=== PATIENT | male | born 1975 | race Caucasian/White ===

== ENCOUNTER 2018-07-14 05:36 | Day surgery (SDC) | payer OTHER, SELFPAY ==
[2018-07-14 06:20] VITALS: BP 148/94; PULSE 79; RESP 18; TEMP 36.2; O2SAT 98; BMI 35.9
[2018-07-14] MEDS: Cefazolin 2 GM in 0.9% Normal Saline 100 ML IV (07:14)
--- NOTE | 2018-07-14 07:15 | LIP_PTH ---
PATIENT: LELA MCDONALD LOC: [facility] – [place] U#:[id number] AGE/SX: 42/M ROOM: RE07/14/[address]: Dr. Adam Lemus MD : 1975 BED: DIS: 07/14/2018 SPEC #: [id number] RECD: 07/14/18 09:02 STATUS: VINNY SEEMA #: [id number] NOEMI: 07/14/18 07:[address]: Adam Lemus DEPT: SURGICAL PATHOLOGY RECD BY: Rayray Grayson ENTERED: 07/14/18 13:46 SP TYPE: LIPOMA OTHR DR: Dr. Pavel Mclean MD Tissues: Soft tissues, NOS Procedures: Surgery Specimen Level III HEADER OPERATION: Excision lipoma upper back/base of neck PRE-OP DIAGNOSIS: Lipoma upper back/base of neck TISSUE SUBMITTED: Lipoma upper back/base of neck MICROSCOPIC DIAGNOSIS Soft tissue lesion of upper back/base of neck, excision: Mature adipose tissue consistent with lipoma. AM:isma 07/15/18 MICROSCOPIC DESCRIPTION Slides are reviewed. GROSS DESCRIPTION Received in fixative is one container labeled with the patient's name and designated lipoma upper back. The specimen consists of multiple irregular fragments of yellow fatty tissue that in aggregate measure 11 x 11 x 2.2 cm. Sections reveal homogenous light franks-yellow cut surfaces without areas of cyst formation or necrosis. Cost Control Supervisor sections are submitted in two cassettes. / AM:isma 07/14/18 TC:1 CPT: 30349
[2018-07-14] MEDS: Bupivacaine Mpf 0.5% 30 ML VIAL (08:17)
--- NOTE | 2018-07-14 08:27 | PCM.OPRPT ---
Report of Operation Date of Procedure: 07/14/18 Pre-Operative Diagnosis: lipoma back - 11cm Post-Operative Diagnosis: lipoma back - 11cm Surgery/Procedure Performed:: excision of back lipoma - 11cm track repair laborer: None track repair laborer: Sofia Rock Type of Anesthesia:: General Anesthesiologist: Dilshad Limon - ASA2 Specimen's removed: lipoma Estimated Blood Loss (mL): 25 Fluids Replaced: 700 Description of Procedure: the patient's lipoma was marked in the holding area and the patient concurred that this was the planned operative site. The patient was brought back to the operative suite. Sign in was performed verifying patient, site, position, VTE prophylaxis and antibiotics. he received 2 g of Ancef andhad sequential compression devices placed. Following induction of LMA anesthesia, the patient was positioned left side down lateral decubitus position with care being taken to avoid pressure points. Ultrasound was used to evaluate the lipoma lunate. The margins. It was felt to be relatively superficial ultrasound, but in fact turned out to be deeper. On exploration. The skin was prepped and draped in usual fashion. Timeout was performed verifying patient site procedure position. Local anesthetic was injected. A transverse incision was made and dissection carried down to subcutaneous fat. Deeper to the Garth's layer was entered and a lipoma with multiple pockets between the connective tissue was encountered. These were dissected out and divided. The entire lipoma was approximately 11 x 11 cm. Once the lipoma was completely removed it was sent to pathology. The area was checked for additional palpable masses and there were no other felt to be unresectable areas. Ears irrigated with saline. There was good hemostasis. Deep fat was approximated interrupted 2-0 Vicryl sutures. Skin was closed with 3-0 nylon simple and vertical mattress sutures. The patient the procedure well. He was returned to the supine position, extubated and brought to recovery in stable condition. - Admit VTE Documentation VTE Present on Admission: No VTE Mechan Device Prophylaxis: SCD's VTE Pharm Prophylaxis ordered?: No
--- NOTE | 2018-07-14 08:29 | PCM.DC ---
You will use the following diet at home:: No restrictions Your food should be the consistency of: Regular Discharge Activity: May not drive while taking narcotic pain medications. Return to work on:: 07/18/18 Call your doctor if your incision/area has: Continuous Slow Oozing, Increased Pain/ Swelling, Increased Redness, Foul Smelling Discharge, Swelling at the incision site Call your doctor if you observe: Fever of 101 or Higher Remove Dressing in (days):: 3 Cleanse incision/area with: Keep Dressing Clean & Dry Allergies/Adverse Reactions: Allergies No Known Allergies Allergy (Verified 07/07/18 09:31) Medications to take at Discharge NK [NK] 07/07/18 Primary Care Physician: Pavel Mclean MD [Primary Care Provider] - Test Results: Test results from this visit will be discussed in further detail at your follow-up appointment, if applicable. Please Follow Up With: Adam Lemus MD When: 10 days
[2018-07-14 08:32] VITALS: BP 141/98; BP 148/95; PULSE 84; RESP 18; TEMP 36.9; O2SAT 99
[2018-07-14 08:48] VITALS: BP 140/99; BP 148/95; PULSE 78; RESP 18; TEMP 36.2; O2SAT 97
[2018-07-14 09:21] VITALS: BP 148/95
== END 2018-07-14 09:22 | disposition home or self-care (01) ==
LOC: SDC 05:37 → AC 05:39
PROVIDERS: Family Provider Family Medicine; PCP Family Medicine; Visit Provider Surgery
PROC: (CPT 21931; principal; 2018-07-14 07:00)
DX: D17.1 Benign lipomatous neoplasm of skin and subcutaneous tissue of trunk (principal); Z87.891 Personal history of nicotine dependence
CPT/HCPCS: 00300; 21931; 88304; J7120; J2405

== ENCOUNTER → 2019-03-26 | Outpatient (CLI) | payer OTHER, SELFPAY ==
[2019-03-26 11:44] VITALS: BMI 37.0
--- NOTE | 2019-03-26 12:47 | RAD_ITS ---
STUDY: X-RAY CHEST REASON FOR EXAM: Male, 43 years old. Chest pain, chest discomfort for 3-4 days TECHNIQUE: PA and lateral views of the chest. COMPARISON: None. FINDINGS: The lungs are clear and expanded. There is no demonstrated pleural abnormality. Normal size heart. Normal mediastinum and kang. Normal visualized pulmonary arteries. Normal visualized aortic arch and descending thoracic aorta. Normal visualized thoracic spine. Normal visualized ribs, clavicles, and shoulders. There is no demonstrated abnormality of the visualized soft tissue structures of the upper abdomen. RAD/Chest PA and Lateral IMPRESSION: No acute cardiopulmonary process. Electronically Signed: Tong Anderson MD at 12:03 EDT , Service support ,
== END | disposition home or self-care (01) ==
LOC: RAD 12:47
PROVIDERS: Referring Provider Internal Medicine Cardiovascular Disease; Visit Provider Internal Medicine Cardiovascular Disease
DX: R07.9 Chest pain, unspecified (principal); I10 Essential (primary) hypertension; R94.31 Abnormal electrocardiogram [ECG] [EKG]
CPT/HCPCS: 71046

== ENCOUNTER → 2019-04-21 | Outpatient (CLI) | payer OTHER, SELFPAY ==
[2019-03-26 11:44] VITALS: BMI 37.0
--- NOTE | 2019-04-21 06:45 | ECHOCS_ITS ---
Reason For Study: CHEST PAIN Procedure This was a 2D Doppler, Color Flow transthoracic echocardiogram. The study was technically difficult. Exam performed in department. Left Ventricle Normal LV size. Left ventricular systolic function is normal. The estimated ejection fraction is 60 %. Transmitral doppler flow suggestive of impaired relaxation of left ventricle. No regional wall motion abnormalities noted. Right Ventricle Normal RV size. Normal systolic function. Atria Normal left atrium. Normal right atrium. No doppler evidence for ASD. Mitral Valve There is no mitral annular calcification. Normal mitral valve. Trivial mitral valve insufficiency. Tricuspid Valve Normal tricuspid valve. Trivial tricuspid valve insufficiency. Unable to estimate RV systolic pressure/pulmonary artery pressure due to technically difficult study. Aortic Valve Trisinus/trileaflet aortic valve. Normal aortic valve. Pulmonic Valve The pulmonic valve is not well visualized. Trivial pulmonic valve insufficiency. Great Vessels Normal sized aortic root. Pericardium/Pleural No pericardial effusion. Medication Diluted definity 4ml given slow IV push to enhance endocardial definition. MMode/2D Measurements & Calculations LVIDd: 4.9 cm IVSd: 0.88 cm Ao root diam: 3.2 cm LVIDs: 3.2 cm LVPWd: 0.79 cm RVDd: 3.5 cm FS: 34.7 % LAV(MOD-bp): 24.7 ml LVAd ap4: 33.1 cm2 SV(MOD-sp4): 58.9 ml LAV(MOD-bp) Indexed: 10.5 ml/m2 EDV(MOD-sp4): 106.2 ml LAV(MOD-sp2): 33.9 ml EDV(sp4-el): 111.1 ml LAV(MOD-sp4): 18.8 ml LVAs ap4: 20.4 cm2 ESV(MOD-sp4): 47.3 ml ESV(sp4-el): 48.7 ml EF(MOD-sp4): 55.5 % EF(sp4-el): 56.2 % SV(sp4-el): 62.4 ml LA A4 area: 10.2 cm2 LA dimension(2D): 3.5 cm RA A4 area: 8.7 cm2 Time Measurements MV dec time: 0.16 sec Doppler Measurements & Calculations MV E max dale: 59.8 cm/sec Lat Peak E' Dale: 9.3 cm/sec Med Peak E' Dale: 12.2 cm/sec MV A max dale: 73.0 cm/sec E/E' lat: 6.5 E/E' med: 4.9 MV E/A: 0.82 Ao V2 max: 112.2 cm/sec LV V1 max: 92.8 cm/sec PA V2 max: 105.9 cm/sec Ao max P.0 mmHg LV V1 max P.4 mmHg Interpretation Summary The study was technically difficult. Left ventricular systolic function is normal. The estimated ejection fraction is 60 %. Trivial mitral valve insufficiency. Trivial tricuspid valve insufficiency. Trivial pulmonic valve insufficiency. Unable to estimate RV systolic pressure/pulmonary artery pressure due to technically difficult study. Transmitral doppler flow suggestive of impaired relaxation of left ventricle Ordering Physician: Bassem Quezada Referring Physician: Bassem Quezada Performed By: Pebbles Swain RDCS
[2019-04-21 08:00] LABS: AST(SGOT) 29 U/L (15-37); Alanine Aminotransfer ALT/SGPT 36 U/L (16-61); Albumin, Serum 3.7 g/dL (3.2-5.0); Alkaline Phosphatase 94 U/L (45-117); Anion Gap 9 (5-15); BUN 20 mg/dL (7-18); BUN/Creat Ratio 19.8 RATIO (10-20); Bilirubin, Direct 0.12 mg/dL (0.00-0.30); Calcium,Total 8.6 mg/dL (8.5-10.1); Chloride 102 mmol/L (98-107); Cholesterol 197 mg/dL (200); Creatinine, Serum 1.01 mg/dL (0.70-1.30); EST Glomerular Filtration Rate 85 mL/min (>60); Est Glom Filt Rate - Afr Amer 103 mL/min (>60); Globulin 3.7 g/dL (2.2-4.2); Glucose 107 mg/dL (74-106); High Density Lipoprotein 54 mg/dL; Potassium 3.7 mmol/L (3.5-5.1); Protein, Total 7.4 g/dL (6.4-8.2); Sodium Level 142 mmol/L (136-145); Triglycerides 173 mg/dL; Very Low Density Lipoprotein 35 mg/dL (5-40)
--- NOTE | 2019-04-21 14:08 | STRESSREP ---
Stress Test Report Date: 04-21-19 Procedure: Exercise tolerance test/imaging study Indications: Chest pain Consent: Per the patient Procedure: The patient exercised on a Rober protocol for 9 minutes and 45 seconds completing Stage II and 2 minutes and 45 seconds of Stage III achieving a peak heart rate of 181 bpm (102 % predicted maximal heart rate) with a peak blood pressure 180/100 mmHg and a peak MET capacity of 11 METs. The baseline ECG demonstrated normal sinus rhythm; nonspecific T wave abnormality. The peak exercise ECG demonstrated continued nonspecific T wave abnormality with no obvious changes compared with baseline. There were no cardiac dysrhythmias pretest, during exercise, or recovery. The functional capacity was considered good. There was no complaint of chest discomfort during exercise or recovery. The examination was discontinued secondary to leg discomfort. Impression: 1. Technically adequate (percent predicted maximal heart rate greater than 85%) exercise tolerance test 2. Peak exercise ECG with continued nonspecific T wave abnormality with no obvious changes compared with baseline 3. There were no cardiac dysrhythmias pretest, during exercise, or recovery 4. Nuclear images pending Myocardial perfusion imaging study: Technique: The patient was injected with 14.9 mCi of technetium 99m Cardiolite and subsequently rest SPECT Cardiolite nuclear imaging was obtained in the horizontal long, vertical long, and short axis views. The patient exercised on a Rober protocol for 9 minutes and 45 seconds completing Stage II and 2 minutes and 45 seconds of Stage III achieving a peak heart rate of 181 bpm (102 % predicted maximal heart rate) with a peak blood pressure 180/100 mmHg and a peak MET capacity of 11 METs. The patient was injected with 44.8 mCi of technetium 99m Cardiolite and subsequently stress SPECT Cardiolite nuclear imaging was obtained in the horizontal long, vertical long, and short axis views. A gated Cardiolite study at peak stress was obtained. Interpretation: Rest and stress SPECT Cardiolite nuclear imaging status post realignment, normalization, and attenuation correction, demonstrates appearance of a small area of subtle diminished tracer uptake near the apical segments without significant change between rest and stress. There is end systolic thickening and brightening. The gated Cardiolite study demonstrates myocardial thickening and inward wall motion. The reported LVEF is 64 %. Impression: 1. Rest and stress SPECT Cardiolite nuclear imaging demonstrate myocardial perfusion changes appearing compatible defects of physiologic apical thinning with no myocardial perfusion changes considered diagnostic for associated stress-induced myocardial ischemia or previous myocardial injury/infarction. 2. The gated Cardiolite study reports an LVEF of 64 o0%. This note was generated with Fengguoation software. It may contain incorrect words, spelling, and punctuation that were not noted in checking the note before signing.
--- NOTE | 2019-04-21 14:12 | STRESSREP_ITS ---
Stress Test Report Date: 04-21-19 Procedure: Exercise tolerance test/imaging study Indications: Chest pain Consent: Per the patient Procedure: The patient exercised on a Rober protocol for 9 minutes and 45 seconds completing Stage II and 2 minutes and 45 seconds of Stage III achieving a peak heart rate of 181 bpm (102 % predicted maximal heart rate) with a peak blood pressure 180/100 mmHg and a peak MET capacity of 11 METs. The baseline ECG demonstrated normal sinus rhythm; nonspecific T wave abnormality. The peak exercise ECG demonstrated continued nonspecific T wave abnormality with no obvious changes compared with baseline. There were no cardiac dysrhythmias pretest, during exercise, or recovery. The functional capacity was considered good. There was no complaint of chest discomfort during exercise or recovery. The examination was discontinued secondary to leg discomfort. Impression: 1. Technically adequate (percent predicted maximal heart rate greater than 85%) exercise tolerance test 2. Peak exercise ECG with continued nonspecific T wave abnormality with no obvious changes compared with baseline 3. There were no cardiac dysrhythmias pretest, during exercise, or recovery 4. Nuclear images pending Myocardial perfusion imaging study: Technique: The patient was injected with 14.9 mCi of technetium 99m Cardiolite and s ubsequently rest SPECT Cardiolite nuclear imaging was obtained in the horizontal long, vertical long, and short axis views. The patient exercised on a Rober protocol for 9 minutes and 45 seconds completing Stage II and 2 minutes and 45 seconds of Stage III achieving a peak heart rate of 181 bpm (102 % predicted maximal heart rate) with a peak blood pressure 180/100 mmHg and a peak MET capacity of 11 METs. The patient was injected with 44.8 mCi of technetium 99m Cardiolite and subsequently stress SPECT Cardiolite nuclear imaging was obtained in the horizontal long, vertical long, and short axis views. A gated Cardiolite study at peak stress was obtained. Interpretation: Rest and stress SPECT Cardiolite nuclear imaging status post realignment, normalization, and attenuation correction, demonstrates appearance of a small area of subtle diminished tracer uptake near the apical segments without significant change between rest and stress. There is end systolic thickening and brightening. The gated Cardiolite study demonstrates myocardial thickening and inward wall motion. The reported LVEF is 64 %. Impression: 1. Rest and stress SPECT Cardiolite nuclear imaging demonstrate myocardial perfusion changes appearing compatible defects of physiologic apical thinning with no myocardial perfusion changes considered diagnostic for associated stress-induced myocardial ischemia or previous myocardial injury/infarction. 2. The gated Cardiolite study reports an LVEF of 64 o0%. This note was generated with PowerCardation software. It may contain incorrect words, spelling, and punctuation that were not noted in checking the note before signing.
== END | disposition home or self-care (01) ==
PROVIDERS: Referring Provider Internal Medicine Cardiovascular Disease; Visit Provider Internal Medicine Cardiovascular Disease
DX: R07.9 Chest pain, unspecified (principal); I10 Essential (primary) hypertension; R94.31 Abnormal electrocardiogram [ECG] [EKG]
CPT/HCPCS: 36415; 78452; 80048; 80061; 80076; 93017; 93306; A9500; Q9957; A4216; C8929

== ENCOUNTER 2025-10-12 14:46 | Emergency (ER) | payer OTHER, SELFPAY ==
[2025-10-12 14:46] VITALS: BP 158/111; PULSE 115; RESP 16; TEMP 36.6; O2SAT 97; BMI 40.6
[2025-10-12 14:56] VITALS: BP 148/88; PULSE 99; RESP 21; O2SAT 96
--- NOTE | 2025-10-12 15:25 | EKG12_ITS ---
Test Reason : Blood Pressure : */* mmHG Vent. Rate : 87 BPM Atrial Rate : 87 BPM P-R Int : 164 ms QRS Dur : 70 ms QT Int : 350 ms P-R-T Axes : 4 3 -12 degrees QTcB Int : 421 ms Normal sinus rhythm Inferior infarct , age undetermined Abnormal ECG Confirmed by SAKINA SAMANO, MELINDA ([id number]), online editor LUH KIRKPATRICK ([id number]) on 10/13/2025 9:22:36 AM Referred By: Confirmed By: MELINDA PRESLEY MD
[2025-10-12 15:43] VITALS: BP 133/91; BP 141/85; BP 146/89; PULSE 104; PULSE 90
--- NOTE | 2025-10-12 15:44 | EX.ED.DYSGE1 ---
HPI History of Present Illness Chief Complaint: Weakness Narrative Narrative: Patient is a 50-year-old male presenting to the emergency department for generalized weakness. Patient states that he was just started on amlodipine as well as allopurinol about 1.5 weeks ago by his PCP. He states that after he started taking this he felt lightheaded intermittently and generally weak. He denies fever, chills, cough, congestion, sore throat. Denies chest pain, shortness of breath, abdominal pain, nausea, vomiting, diarrhea. Denies any dysuria or hematuria. Denies any headache or visual changes. Denies any focal numbness or weakness. Denies any other medications that he was recently started on. States that he checked his bp when he was feeling this way and his bp was aroiund 110/60 which is much lower than his normal he reports. [facility] Medical History (Updated 10/12/25 @ 17:[address] Aurora Jones MD) Essential hypertension Chest pain Medical History unable to obtain Home Medications ?Medication ?Instructions ?Recorded ?Last Taken ?Type amlodipine 2.5 mg tablet 2.5 mg PO DAILY #30 tabs 09/02/19 Unknown Rx doxycycline hyclate 100 mg tablet 100 mg PO Q12H 5 days #10 tabs 10/12/25 Unknown Rx Allergy/AdvReac Type Severity Reaction Status Date / Time No Known Allergies Allergy Verified 10/12/25 14:48 Family History Mother CAD (coronary artery disease) History of coronary artery bypass surgery Father CAD (coronary artery disease) Family History unable to obtain Surgical History History of shoulder surgery Surgical History unable to obtain Social History Smoking Status: Never smoker alcohol intake: current details: occasional substance use type: does not use caffeine: Yes Type: coffee Number of servings: 3 ROS ROS ED ROS Narrative see HPI EXAM Physical Exam Narrative Exam Narrative: Vital signs: Reviewed General: Alert and oriented x 3. No acute distress HEENT: Head is normocephalic and atraumatic, sinuses nontender, pupils equal round and reactive. Nares are patent. Oropharynx and throat exams normal. Neck: Supple without lymphadenopathy nontender Cardiovascular: Regular rate and rhythm, no murmurs. No rubs or gallops. Normal S1 and S2 Respiratory: Clear to auscultation bilaterally. No wheezes, rales, rhonchi Abdominal: Soft and nontender. Normal bowel sounds. No guarding or rebound. Nonsurgical abdomen Extremities: No tenderness. No bruising. Normal range of motion. Normal sensation. Skin: No rash or redness. Neurological: Cranial nerves II through XII are grossly intact. Normal strength and sensation. Normal cerebellar function The rest of the physical exam is unremarkable Const Vital Signs: 10/12/25 14:46 10/12/25 14:56 10/12/25 14:56 Temperature 97.8 F Temperature Source Oral Pulse Rate 115 H 99 Pulse Rate [Sitting (for 1 minute prior to obtaining)] Pulse Rate [Standing (for 1 minute prior to obtaining)] Respiratory Rate 16 21 H Respiratory Effort Normal Respiratory Pattern Normal Blood Pressure 158/111 H 148/88 H Blood Pressure [Lying] Blood Pressure [Sitting (for 1 minute prior to obtaining)] Blood Pressure [Standing (for 1 minute prior to obtaining)] Blood Pressure Mean 126 108 Blood Pressure Mean [Lying] Blood Pressure Mean [Sitting (for 1 minute prior to obtaining)] Blood Pressure Mean [Standing (for 1 minute prior to obtaining)] Pulse Ox 97 96 Oxygen Delivery Method Room Air Room Air 10/12/25 15:43 10/12/25 16:59 10/12/25 17:47 Temperature 97.8 F Temperature Source Pulse Rate 88 84 Pulse Rate [Sitting (for 1 minute prior to obtaining)] 90 Pulse Rate [Standing (for 1 minute prior to obtaining)] 104 H Respiratory Rate 17 18 Respiratory Effort Respiratory Pattern Blood Pressure 141/91 H 142/64 H Blood Pressure [Lying] 141/85 H Blood Pressure [Sitting (for 1 minute prior to obtaining)] 133/91 H Blood Pressure [Standing (for 1 minute prior to obtaining)] 146/89 H Blood Pressure Mean 107 90 Blood Pressure Mean [Lying] 103 Blood Pressure Mean [Sitting (for 1 minute prior to obtaining)] 105 Blood Pressure Mean [Standing (for 1 minute prior to obtaining)] 108 Pulse Ox 94 99 Oxygen Delivery Method Room Air NIHSS NIHSS Initial: 1a Level of Consciousness: 0 1b LOC Questions (Score 2 if aphasic/stupor): 0 1c LOC Commands (Only score 1st attempt): 0 2 Best Gaze (If aphasic, use reflexive mvmts.): 0 3 Visual: 0 4 Facial Palsy: 0 5 Motor Arm Right (UN = amputation/fusion): 0 5 Motor Arm Left: 0 6 Motor Leg Right: 0 6 Motor Leg Left: 0 7 Limb ataxia (Only + if out of proportion): 0 8 Sensory (Aphasia/stupor=0 or 1, coma=2): 0 9 Best Language: 0 10 Dysarthria (mute, coma=2, intubated=UN): 0 11 Extinction and Inattention (only scored if +): 0 Total Score: 0 MDM MDM MDM Narrative Medical decision making narrative: Patient is a 50-year-old male presenting to the emergency department for feeling generally weak and lightheaded. Patient was seen and examined. Vitals are stable. Patient resting in bed comfortably in no acute distress. Differential includes but is not limited to: Electrolyte abnormality, anemia, UTI, ACS, pneumonia, hypotension, viral illness. Weakness is generalized not focal I do not think is a stroke in nature. EKG, chest x-ray, basic lab work and urinalysis were obtained. CBC with no leukocytosis and a normal hemoglobin. BMP with no significant abnormalities. Urinalysis with no evidence of urinary tract infection. Chest x-ray reviewed by myself, possible mild right infrahilar density seen. Radiology read in agreement. EKG shows normal sinus rhythm, no ischemic changes. No dysrhythmia. Appears similar to EKG in the past in 2019. Similar appearing EKG in the past and no chest pain or shortness of breath to think that this is ACS in nature. I do not think the patient needs troponins. I discussed the findings with the patient. Given his reports of generalized weakness and the x-ray findings I did offer antibiotics for the patient for possible atypical pneumonia. Will prescribe doxycycline for home for 5 days. I do think the patient's symptoms are likely due to his recent addition of amlodipine. This was discussed with him. Patient discharged from the Emergency Department. I do not feel that the patient's evaluation reveals any acute reason for admission at this time. I instructed them to either follow-up with their primary care physician or promptly return to the Emergency Department for reevaluation should symptoms worsen or new symptoms develop. I explained what symptoms would indicate the need to return to the emergency department. Shared decision making was used. The patient voiced understanding of the treatment plan and is agreeable with it. Clinical impression Generalized weakness Pneumonia History & Record Review Discussion w/independent historian: Patient Lab Data Attestation: I reviewed the patient's lab results. Labs: Laboratory Results - last 24 hr 10/12/25 10/12/25 15:32 15:43 WBC 9.3 RBC 5.65 Hgb 16.2 Hct 46.9 MCV 83.0 MCH 28.7 MCHC 34.5 RDW Std Deviation 38.9 RDW Coeff of Femi 12.9 Plt Count 315 MPV 9.5 Immature Gran % (Auto) 0.300 Neut % (Auto) 79.6 H Lymph % (Auto) 12.4 L Pender % (Auto) 5.9 Eos % (Auto) 1.2 Baso % (Auto) 0.6 Absolute Neuts (auto) 7.4 Absolute Lymphs (auto) 1.15 Nucleated RBC % 0 Sodium 137 Potassium 3.7 Chloride 102 Carbon Dioxide 24.4 Anion Gap 11 BUN 20 H Creatinine 1.10 Estim Creat Clear Calc 110.15 Est GFR (MDRD) Non-Af 81 BUN/Creatinine Ratio 18.5 Glucose 121 H Calcium 8.8 Urine Color Straw Urine Clarity Clear Urine pH 6.0 Ur Specific [place] 1.015 Urine Protein 30 H Urine Glucose (UA) Normal Urine Ketones Negative Urine Occult Blood 10 H Urine Nitrite Negative Urine Bilirubin Negative Urine Urobilinogen Normal Ur Leukocyte Esterase Negative Urine RBC 0-5 SEEN Urine WBC 0-5 SEEN Ur Squamous Epith Cells 0-5 SEEN Urine Bacteria 0 SEEN Urine Mucus 0 SEEN Radiography Diagnostic Testing: Clinical Impression(s) from Imaging Studies Chest X-Ray 10/12/25 15:49 IMPRESSION: As above. Reading Location: [facility] Discharge Plan Triage Chief Complaint: Weakness ED Provider: Aurora Jones Dx/Rx/DC Orders Clinical Impression: Generalized weakness, Pneumonia Instructions: ED Pneumonia (Adult), ED Weakness Uncertain Cause Prescriptions: New doxycycline hyclate 100 mg tablet 100 mg PO Q12H 5 Days Qty: 10 0RF No Action amlodipine 2.5 mg tablet 2.5 mg PO DAILY Qty: 30 12RF Stand Alone Forms: ED Work / School Excuse Primary Care Provider: Lila Vera NP Referrals: Lila Vera NP, TRANSPORT COORDINATOR-C [Primary Care Provider, [facility]] - As soon as possible Activity Restrictions/Additional Instructions: Take the antibiotic twice a day for 5 days. Continue taking your blood pressure medication. Your evaluation in the Emergency Department did not reveal any acute reason for admission. However, I want to emphasize that you may be early in the course of a disease process or illness even if it is not present. For this reason you should follow-up within 24 hours for reevaluation with either your primary care physician or if necessary back here in the Emergency Department. You should return to the Emergency Department immediately if your symptoms worsen or new symptoms develop. Print Language: Yakut Disposition Disposition: Home, Self Care Discharge Date/Time: 10/12/25 17:56
[2025-10-12 15:45] LABS: Hematocrit 46.9 % (40-54); Hemoglobin 16.2 g/dL (13.0-16.5); Immature Granulocytes Count 0.030 X10^3/uL (0.0-0.0); Mean Corp Hgb Conc 34.5 g/dL (32-36); Mean Corpuscular Volume 83.0 fL (80-94); Mean Platelet Vol. 9.5 fl (6.2-12.0); NRBC Flagged by Analyzer 0 % (0-5); Platelet Count 315 K/mm3 (150-450); RBC Distribution Width CV 12.9 % (11.6-14.6); RBC Distribution Width SD 38.9 fl (35.1-43.9); Red Blood Count 5.65 M/mm3 (4.6-6.2); White Blood Count 9.3 K/mm3 (4.4-11.0)
[2025-10-12 15:47] LABS: Mucous, Urine 0 SEEN /hpf (<or=2+)
--- NOTE | 2025-10-12 15:49 | RAD_ITS ---
PROCEDURE: CHEST PA AND LATERAL 10/12/2025 REASON FOR EXAM: WEAK TECHNIQUE: Procedure Code: RADCXR Modality: DX Procedure: CHEST PA AND LATERAL COMPARISON: 03/26/2019. FINDINGS: Patchy opacity in the right infrahilar region is concerning for developing infiltrates. Otherwise the lungs are clear. The cardiac silhouette appears normal in size and contour. No acute osseous abnormality. Stable degenerative changes within the thoracic spine. RAD/Chest PA and Lateral IMPRESSION: As above. Reading Location: [id number]
[2025-10-12 16:14] LABS: Anion Gap 11 (5-15); BUN 20 mg/dL (4-19); BUN/Creat Ratio 18.5 RATIO (10-20); Calcium,Total 8.8 mg/dL (7.6-11.0); Carbon Dioxide 24.4 mmol/L (21.0-32.0); Chloride 102 mmol/L (98-108); Estimated Creatinine Clearance 110.15 ml/min (50-250); Glucose 121 mg/dL (70-99); Potassium 3.7 mmol/L (3.3-5.1)
[2025-10-12 16:59] VITALS: BP 141/91; PULSE 88; RESP 17; O2SAT 94
[2025-10-12 17:01] LABS: Color, Urine Straw (Yellow); Glucose, Dipstick Normal (Normal); Ketone-Dipstick Negative (Negative); Leukocyte Esterase-Dipstick Negative /ul (Negative); Nitrite-Dipstick Negative (Negative); Occult Blood-Urine 10 /ul (Negative); Protein-Dipstick 30 mg/dl (Negative); Specific Gravity, Urine 1.015 (1.002-1.030); Urine Bilirubin Dipstick Negative (Negative)
[2025-10-12 17:28] LABS: Red Blood Cells-Urine 0-5 SEEN /hpf (0-5); Squamous Epithelial Cells - UA 0-5 SEEN /hpf (0-5)
[2025-10-12 17:47] VITALS: BP 142/64; PULSE 84; RESP 18; TEMP 36.6; O2SAT 99
--- OUTSIDE RECORDS SUMMARY | 2025-10-12 19:16 | XMS RPT_ITS | CCD ---
Author Organization [facility] Care Team Providers Care Interviewing Clerk Name Role Phone UNGERER, AMINA NIGHT TIME BABYSITTER Attending Unavailable UNGERER, AMINA NIGHT TIME BABYSITTER Primary Care Unavailable UNGERER, AMINA NIGHT TIME BABYSITTER Admitting Unavailable Juan Manuel Leon Attending Unavailable Care Physician, No Primary Referring Unava ilable Care Physician, No Primary Primary Care Unava ilable UNGERER, AMINA NIGHT TIME BABYSITTER Primary Care Unavailable UNGERER, AMINA NIGHT TIME BABYSITTER Admitting Unavailable UNGERER, AMINA NIGHT TIME BABYSITTER Attending Unavailable UNGERER, AMINA NIGHT TIME BABYSITTER Consulting Unavailable PROVIDER, UNKNOWN Consulting Unavailable UNGERER, AMINA NIGHT TIME BABYSITTER Admitting Unavailable UNGERER, AMINA NIGHT TIME BABYSITTER Attending Unavailable UNGERER, AMINA NIGHT TIME BABYSITTER Primary Care Unavailable UNGERER, AMINA NIGHT TIME BABYSITTER Consulting Unavailable HOA, RONA Admitting Unavailable HOA, RONA Primary Care Unavailable HOA, RONA Attending Unavailable PROVIDER, UNKNOWN Consulting Unavailable HOA, RONA Admitting Unavailable HOA, RONA Primary Care Unavailable HOA, RONA Attending Unavailable UNGERER, AMINA NIGHT TIME BABYSITTER Consulting Unavailable PROVIDER, UNKNOWN Consulting Unavailable Problems Active Problems Problem Classification Problem Date Documented Da te Episodic/Chronic Essential hypertension (3 sources) Essential (primary) hypertension; Translations: [Essential (primary) hypertension] Onset: 12-13-2022 Chronic 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) Gout, unspecified; Translations: [Gout, unspecified] Onset: 09-28-2025 Chronic Other non-traumatic joint disorders (1 source) Effusion, right elbow; Translations: [Effusion, right elbow] Onset: 12-19-2023 Episodic Unclassified (1 source) Obesity, class 3; Translations: [Obesity, class 3] Onset: 02-25-2025 Past or Other Problems Problem Classification Problem Date Documented Da te Episodic/Chronic Other screening for suspected conditions (not mental disorders or infectious disease) (3 sources) Encounter for screening for lipoid disorders; Translations: [Encounter for screening for malignant neoplasm of prostate] Onset: 12-13-2022 Episodic Results Test Name Value Interpretation Reference Range Facil ity URIC ACIDon 09-28-2025 Urate [Mass/Vol] 7.5 mg/dL High 3.5 - 7.2 [facility] Comment on above: Performed By: #### 2 [id number] #### [facility],[address] [place] [address] CBC + DIFFon 12-19-2023 Baso # 0.10 x10EE3/UL Normal 0.00 - 0.10 [facility] Comment on above: Performed By: #### 2 04300 #### [place] [address] Basophils/100 WBC (Bld) 0.6 % Normal 0.0 - 2.0 [facility] Comment on above: Performed By: #### 2 93567 #### [facility],[address] [place] [address] CBC + DIFF Normal [facility] Comment on above: Result Comment: CBC- COMPLETE BLOOD COUNT Performed By: #### 2 27472 #### [place] [address] EO # 0.10 x10EE3/UL Normal 0.00 - 0.50 [facility] Comment on above: Performed By: #### 2 46902 #### [facility],[address] [place] [address] Eosinophils/100 WBC (Bld) 1.0 % Normal 0.0 - 7.0 [facility] Comment on above: Performed By: #### 2 98192 #### [place] [address] Erythrocyte distribution width (RBC) [Ratio] 14.4 % Normal 12.0 - 15.6 [facility] Comment on above: Performed By: #### 2 58962 #### [facility],[address] [place] [address] Hematocrit (Bld) [Volume fraction] 46.2 % Normal 40.0 - 52.0 [facility] Comment on above: Performed By: #### 2 75455 #### [facility],[address] [place], [place] [id number] Hemoglobin (Bld) [Mass/Vol] 15.4 g/dL Normal 13.0 - 17.5 [facility] Comment on above: Performed By: #### 2 86235 #### [facility],[address] [place] [address] Lymph # 2.30 x10EE3/UL Normal 0.80 - 2.80 [facility] Comment on above: Performed By: #### 2 49834 #### [facility],[address] [place] [address] Lymphocytes/100 WBC (Bld) 22.0 % Normal 20.0 - 45.0 [facility] Comment on above: Performed By: #### 2 44656 #### [facility],[address] [place] [address] 83161 MANUAL DIFF N/A Normal [facility] Comment on above: Performed By: #### 2 82204 #### [facility],[address] [place], [place] [id number] MCH (RBC) [Entitic mass] 28 pg Normal 27 - 33 [facility] Comment on above: Performed By: #### 2 77966 #### [facility],[address] [place] [address] 91078 MCHC 33 X10 3 Normal 32 - 36 [facility] Comment on above: Performed By: #### 2 78104 #### [facility],[address] [place] [address] 33104 MCV (RBC) [Entitic vol] 85 fL Normal 81 - 98 [facility] Comment on above: Performed By: #### 2 80308 #### [facility],[address] [place] [address] 98139 Coles # 0.70 x10EE3/UL Normal 0.20 - 1.00 [facility] Comment on above: Performed By: #### 2 48852 #### [facility],[address] [place] [address] 67838 MONOS % 6.5 % Normal 0.0 - 10.0 [facility] Comment on above: Performed By: #### 2 05837 #### [facility],[address] [place] [address] 85144 Morphology Florentino (Bld) [Interp] N/A Normal [facility] Comment on above: Result Comment: {CD] Performed By: #### 2 20316 #### [facility],[address] [place] [address] 51974 Neut # 7.20 x10EE3/UL High 1.50 - 7.10 [facility] Comment on above: Performed By: #### 2 44478 #### [facility],[address] [place] [address] 05540 Neutrophils/100 WBC (Bld) 69.9 % Normal 46.0 - 76.0 [facility] Comment on above: Performed By: #### 2 50710 #### [facility],[address] [place] [address] 77922 PLATELET 409 x10EE3/UL Normal 150 - 450 [facility] Comment on above: Performed By: #### 2 19237 #### [facility],[address] [place] [address] 97662 Platelet mean volume (Bld) [Entitic vol] 7.6 fL Normal 6.4 - 10.5 [facility] Comment on above: Result Comment: AUTO MATED DIFFERENTIAL Performed By: #### 2 94106 #### [facility],[address] [place] [address] 90333 RBC 5.44 x 10EE6/UL Normal 4.50 - 6.00 [facility] Comment on above: Performed By: #### 2 41777 #### [facility],[address] [place] [address] 55637 WBC 10.3 x 10EE3/UL Normal 4.5 - 10.8 [facility] Comment on above: Performed By: #### 2 04073 #### [facility],[address] [place] [address] 17040 CMP with eGFRon 12-19-2023 AGE 48 years Normal [facility] Comment on above: Performed By: #### 2 68936 #### [facility],[address] [place] [address] 98836 Albumin [Mass/Vol] 3.5 g/dL Normal 3.4 - 5.0 [facility] Comment on above: Performed By: #### 2 88508 #### [facility],[address] [place] [address] 58873 Albumin/Globulin [Mass ratio] 0.9 {ratio} Normal 0.9 - 1.6 [facility] Comment on above: Performed By: #### 2 82581 #### [facility],[address] [place] [address] 04967 ALK PHOS 99 U/L Normal 46 - 116 [facility] Comment on above: Performed By: #### 2 61331 #### [facility],[address] [place] [address] 40576 ALT [Catalytic activity/Vol] 29 U/L Normal 16 - 63 [facility] Comment on above: Performed By: #### 2 69772 #### [facility],[address] [place] [address] 13530 Anion gap [Moles/Vol] 15 mmol/L Normal 10 - 20 [facility] Comment on above: Performed By: #### 2 62213 #### [facility],[address] [place] [address] 83279 AST [Catalytic activity/Vol] 21 U/L Normal 15 - 37 [facility] Comment on above: Performed By: #### 2 02183 #### [facility],[address] [place] [address] 50630 B/C RATIO 31 ratio High 0 - 30 [facility] Comment on above: Performed By: #### 2 01015 #### [facility],[address] [place] [address] 08389 Bilirubin [Mass/Vol] 0.7 mg/dL Normal 0.2 - 1.0 [facility] Comment on above: Performed By: #### 2 63294 #### [facility],[address] [place] [address] 62610 Calcium [Mass/Vol] 8.8 mg/dL Normal 8.5 - 10.1 [facility] Comment on above: Performed By: #### 2 34293 #### [facility],[address] [place] [address] 11036 Chloride [Moles/Vol] 103 mmol/L Normal 98 - 107 [facility] Comment on above: Performed By: #### 2 55099 #### [facility],[address] [place] [address] 83582 CMP with eGFR Normal [facility] Comment on above: Result Comment: COMP REHENSIVE METABOLIC PANEL Performed By: #### 2 28007 #### [facility],[address] [place] [address] 96540 CO2 [Moles/Vol] 27.0 mmol/L Normal 21.0 - 32.0 [facility] Comment on above: Performed By: #### 2 58533 #### [facility],[address] [place] [address] 26386 Creatinine [Mass/Vol] 1.00 mg/dL Normal 0.70 - 1.30 [facility] Comment on above: Performed By: #### 2 87133 #### [facility],[address] [place] [address] 29700 GFR/1.73 sq M.predicted among non-blacks MDRD (S/P/Bld) [Vol rate/Area] mL/min/{1.73_m2} Normal 60 - 999 [facility] Comment on above: Performed By: #### 2 54365 #### [facility],[address] [place] [address] 96883 Result Comment: ACCO RDING TO THE NATIONAL KIDNEY DISEASE EDUCATION PROGRAM(NKDE), A NORMAL eGFR IS A VALUE GREATER THAN OR EQUAL TO 60 ML/MIN/1.73 SQ METERS. CHRONIC KIDNEY DISEASE: <60mL/MIN/1.73 SQ METERS KIDNEY FAILURE: <15mL/MIN/1.73 SQ METERS THIS TEST SHOULD ONLY BE USED FOR PATIENTS 18 YEARS OF AGE AND OLDER. Globulin (S) [Mass/Vol] 4.0 g/dL High 1.5 - 3.8 [facility] Comment on above: Performed By: #### 2 87107 #### [facility],[address] [place] [address] 62067 Glucose [Mass/Vol] 89 mg/dL Normal 74 - 106 [facility] Comment on above: Performed By: #### 2 15165 #### [facility],[address] [place] [address] 76018 Potassium [Moles/Vol] 3.5 mmol/L Normal 3.5 - 5.1 [facility] Comment on above: Performed By: #### 2 49676 #### [facility],[address] [place] [address] 32016 Protein [Mass/Vol] 7.5 g/dL Normal 6.4 - 8.2 [facility] Comment on above: Performed By: #### 2 04899 #### [facility],[address] [place] [address] 60669 Sodium [Moles/Vol] 141 mmol/L Normal 136 - 145 [facility] Comment on above: Performed By: #### 2 18720 #### [facility],[address] [place] [address] 60565 Urea nitrogen [Mass/Vol] 31 mg/dL High 7 - 18 [facility] Comment on above: Performed By: #### 2 66147 #### [facility],[address] [place] [address] 17790 LIPID PROFILEon 12-19-2023 Cholesterol [Mass/Vol] 158 mg/dL Normal 0 - 240 [facility] Comment on above: Performed By: #### 2 09519 #### [facility],[address] [place] [address] 43020 Cholesterol in HDL [Mass/Vol] 63 mg/dL High 40 - 60 [facility] Comment on above: Performed By: #### 2 23020 #### [facility],[address] [place] [address] 82806 Cholesterol in LDL [Mass/Vol] 78 mg/dL Normal 0 - 129 [facility] Comment on above: Performed By: #### 2 17155 #### [facility],[address] [place] [address] 26365 Cholesterol.total/C holesterol in HDL [Mass ratio] 2.5 {ratio} Normal 0.0 - 5.0 [facility] Comment on above: Performed By: #### 2 03033 #### [facility],[address] [place] [address] 01565 Lipid 1996 panel Normal [facility] Comment on above: Result Comment: LIPI D PROFILE Performed By: #### 2 23281 #### [facility],[address] [place] [address] 05943 Triglyceride [Mass/Vol] 84 mg/dL Normal 0 - 150 [facility] Comment on above: Performed By: #### 2 17556 #### [facility],[address] [place] [address] 45099 URIC ACIDon 12-19-2023 Urate [Mass/Vol] 8.2 mg/dL High 3.5 - 7.2 [facility] Comment on above: Performed By: #### 2 73427 #### [facility],[address] [place] [address] 70959 CBC + DIFFon 12-13-2022 Baso # 0.10 x10EE3/UL Normal 0.00 - 0.10 [facility] Comment on above: Performed By: #### 2 85891 #### [facility],[address] [place] [address] 71356 Basophils/100 WBC (Bld) 0.8 % Normal 0.0 - 2.0 [facility] Comment on above: Performed By: #### 2 99890 #### [facility],[address] [place] [address] CBC + DIFF Normal [facility] Comment on above: Result Comment: CBC- COMPLETE BLOOD COUNT Performed By: #### 2 75225 #### [facility],[address] [place] [address] 31400 EO # 0.20 x10EE3/UL Normal 0.00 - 0.50 [facility] Comment on above: Performed By: #### 2 83262 #### [facility],[address] [place] [address] 79135 Eosinophils/100 WBC (Bld) 2.4 % Normal 0.0 - 7.0 [facility] Comment on above: Performed By: #### 2 13705 #### [facility],[address] [place] [address] 25138 Erythrocyte distribution width (RBC) [Ratio] 13.6 % Normal 12.0 - 15.6 [facility] Comment on above: Performed By: #### 2 45218 #### [facility],[address] [place] [address] 35898 Hematocrit (Bld) [Volume fraction] 50.8 % Normal 40.0 - 52.0 [facility] Comment on above: Performed By: #### 2 67791 #### [facility],[address] [place] [address] 93431 Hemoglobin (Bld) [Mass/Vol] 16.8 g/dL Normal 13.0 - 17.5 [facility] Comment on above: Performed By: #### 2 85606 #### [facility],[address] [place] [address] Lymph # 1.60 x10EE3/UL Normal 0.80 - 2.80 [facility] Comment on above: Performed By: #### 2 35836 #### [facility],[address] [place] [address] Lymphocytes/100 WBC (Bld) 23.5 % Normal 20.0 - 45.0 [facility] Comment on above: Performed By: #### 2 27369 #### [facility],[address] [place] [address] MANUAL DIFF N/A Normal [facility] Comment on above: Performed By: #### 2 06323 #### [facility],[address] [place] [address] MCH (RBC) [Entitic mass] 28 pg Normal 27 - 33 [facility] Comment on above: Performed By: #### 2 10813 #### [facility],[address] [place] [address] MCHC 33 X10 3 Normal 32 - 36 [facility] Comment on above: Performed By: #### 2 37964 #### [facility],[address] [place] [address] MCV (RBC) [Entitic vol] 85 fL Normal 81 - 98 [facility] Comment on above: Performed By: #### 2 53743 #### [facility],[address] [place] [address] Coles # 0.50 x10EE3/UL Normal 0.20 - 1.00 [facility] Comment on above: Performed By: #### 2 17869 #### [facility],[address] [place] [address] MONOS % 7.4 % Normal 0.0 - 10.0 [facility] Comment on above: Performed By: #### 2 47798 #### [facility],[address] [place] [address] 13027 Morphology Florentino (Bld) [Interp] N/A Normal [facility] Comment on above: Result Comment: {CD] Performed By: #### 2 62861 #### [facility],[address] [place] [address] Neut # 4.50 x10EE3/UL Normal 1.50 - 7.10 [facility] Comment on above: Performed By: #### 2 91036 #### [facility],[address] [place] [address] Neutrophils/100 WBC (Bld) 65.9 % Normal 46.0 - 76.0 [facility] Comment on above: Performed By: #### 2 03098 #### [facility],[address] [place] [address] PLATELET 349 x10EE3/UL Normal 150 - 450 [facility] Comment on above: Performed By: #### 2 33681 #### [facility],[address] [place] [address] Platelet mean volume (Bld) [Entitic vol] 8.8 fL Normal 6.4 - 10.5 [facility] Comment on above: Result Comment: AUTO MATED DIFFERENTIAL Performed By: #### 2 27013 #### [facility],[address] [place], [place] [id number] RBC 5.95 x 10EE6/UL Normal 4.50 - 6.00 [facility] Comment on above: Performed By: #### 2 11398 #### [facility],[address] [place], [place] [address] WBC 6.8 x 10EE3/UL Normal 4.5 - 10.8 [facility] Comment on above: Performed By: #### 2 91746 #### [facility],[address] [place] [address] NURSING PROGon 05-13-2018 NURSING PROG HNO ID: [id number]: Lata (Rn) FRED Veraervice: (none)Author Type: Registered NurseType: Nursing Progress NoteFiled: 05/13/2018 10:57 AMNote Text:PACC Nurse Progress NoteHistory AND Physical:PACC Visit Date: N/AOriginal HANDP Date: 05/05/18 with Ricki Pan (HUMERA)ED visit Date: N/AOutside HANDP Scanned Date: N/ALabs Within Last 6 Months:noneImaging Within Last 12 Months:NoneCardiac Testing:noneRisk Assessment:N/AAnesthes ia Review:N/ANarrative:Ca lled patient to review pre-op instructions. Patient identified by nameand date of . Verbalized understanding of instructions.Pre-op Considerations:N/AChar t Check:Billie Vargas 2017 10:55 AMPATIENT PREOPERATIVE INSTRUCTIONSNo ref. provider found has scheduled you for your procedure at [facility]: [phone] -- [address] [facility] [id number].Please read below carefully for your personalized instructions.Blood Thinning Medications:- You may take Tylenol (Acetaminophen) or any of your pain medicationsthat do not contain aspirin or NSAIDS as needed.Dietary Restrictions:- No solid food after midnight.- You may have 12 ounces of clear liquids (water, clear juices such asapple juice or gatorade, carbonated beverages, clear tea, black coffee,jello) until 2 hours before scheduled arrival at facility.- Do not drink any alcohol after midnight the night before your surgery.Pain Medications:Medication s:Approved medications to take the morning of surgery with a sip of water:Ghislaine you start any new medications after today's visit, please contact [facility] above.Important Reminders:- Candy, mints, gum and tobacco products are NOT permitted the morning ofsurgery.- Hearing aids, dentures and glasses may be worn the morning of surgery.- NO jewelry, body piercings, makeup, nail cuban, hairpins or contactsare to be worn the day of surgery.Shower with an antibacterial soap. Don't apply any lotions, creams,powders, or fragrances after bathing.If you develop symptoms such as a fever, cold, or flu, or have otherchanges to your health within TWO DAYS of scheduled surgery or the morningof surgery, please contact the surgery center above.Personal Belongings:- Leave ALL valuables and money at home or with family members.For Outpatient Procedures: - YOU MUST HAVE A RESPONSIBLE REHABILITATION TECH TAKE YOU HOME. A TAX COMPLIANCE REPRESENTATIVE OR CABDRIVER CANNOT BE MADE A RESPONSIBLE REHABILITATION TECH.- We recommend that a responsible person stays with you overnight to takecare of you.- You cannot stay in a hotel alone after outpatient surgery. You will notbe permitted to have your surgery, if you do not have someone to take careof you. Arrival Time for Surgery:- The Surgery Center or hospital where you are having surgery will callthe afternoon before surgery (or Saturday for Saturday surgery) with ascheduled arrival time.- If you have not heard by 4 pm, please contact the surgery center above.Please be aware that emergency situations arise, which may delay or changeyour surgical time. If this happens, we will notify you as soon aspossible and regret any inconvenience.Lata Vera RN Normal [facility] Encounters Encounter Date Encounter Type Care Provider Facility Start: 09-28-2025 End: 09-28-2025 ambulatory RONA [facility] Start: 02-25-2025 End: 02-25-2025 ambulatory AMINA CASH [facility] Start: 02-25-2025 Encounter for genera l adult medical examination without abnormal findings RONA [facility] Start: 12-19-2023 End: 12-19-2023 ambulatory AMINA NIGHT TIME BABYSITTER [facility] Start: 12-19-2023 End: 12-19-2023 ambulatory AMINA NIGHT TIME BABYSITTER [facility] Start: 03-12-2023 End: 03-12-2023 ambulatory Juan Manuel GRUBBS [place] Start: 12-13-2022 End: 12-13-2022 ambulatory AMINA NIGHT TIME BABYSITTER [facility] Payers Date Payer Category Payer Self-pay 1975 Unknown [id number] 1975 Unknown [id number] [id number] 1975 Unknown [id number] [id number] [id number] 1974 Unknown [id number] 2.16.8 [id number] 1974 Unknown [id number] 2.16.8 [id number] Private Health Insurance [id number] Unknown [id number] Unknown [id number] [id number] Unknown [id number] Summary Purpose Family History No Family History Records FoundNo Family History Records FoundNo Family History Records FoundNo Family History Records FoundNo Family History Records Found Advance Directives No Advanced Directives Records FoundNo Advanced Directives Records FoundNo Advanced Directives Records FoundNo Advanced Directives Records FoundNo Advanced Directives Records Found Additional Source Comments (unrecognized sect ion and content) No Status Records FoundNo Status Records FoundNo Status Records FoundNo Status Records FoundNo Status Records Found INFORMATION SOURCE (unrecogn ized section and content) DATE CREATED AUTHOR 05/13/2018 [facility] DATE CREATED AUTHOR AUTHOR'S ORGANIZ ATION 12/13/2022 [facility] DATE CREATED AUTHOR AUTHOR'S ORGANIZ ATION 03/13/2023 [facility] DATE CREATED AUTHOR AUTHOR'S ORGANIZ ATION 12/20/2023 [facility] DATE CREATED AUTHOR AUTHOR'S ORGANIZ ATION 09/29/2025 [facility] FOR RECORDS PERTAINING TO PATIENTS WHO ARE OR HAVE BEEN ENROLLED IN A CHEMICAL DEPENDENCY/SUBSTANCEABUSE PROGRAM, SOME INFORMATION MAY BE OMITTED. This clinical summary was aggregated from multiple sources. Caution should be exercised in using it in the provision of clinical care. This summary normalizes information from multiple sources, and as a consequence, information in this document may materially change the coding, format and clinical context of patient data. In addition, data may be omitted in some cases. CLINICAL DECISIONS SHOULD BE BASED ON THE PRIMARY CLINICAL RECORDS. [facility] [employer] [facility]. provides no warranty or guarantee of the accuracy or completeness of information in this document.
== END 2025-10-12 17:56 | disposition home or self-care (01) ==
PROVIDERS: Emergency Provider Student in an Organized Health Care Education/Training Program; PCP Nurse Practitioner Family; Visit Provider Student in an Organized Health Care Education/Training Program
DX: J18.9 Pneumonia, unspecified organism (principal); I10 Essential (primary) hypertension; Z79.899 Other long term (current) drug therapy
CPT/HCPCS: 71046; 80048; 81001; 85025; 93005; 99285; A4216